=== PATIENT | female | born 1975 | race American Indian/Alaskan Native ===

== ENCOUNTER 2017-08-31 03:30 | Emergency (ER) | payer OTHER ==
[2017-08-31 03:39] VITALS: BP 116/75
[2017-08-31] MEDS ORDERED: MOTRIN PO ONE (07:57)
--- NOTE | 2017-08-31 08:01 | Emergency Department Report ---
ED ENT HPI - General Chief complaint: Earache Stated complaint: RT EARACHE Time Seen by Provider: 08/31/17 07:48 Source: patient Mode of arrival: Ambulatory Limitations: No Limitations - History of Present Illness Initial comments: 41-year-old female past medical history none presents with complaint of 2 days of right-sided earache. Patient states that she noticed some cerumen-like discharge from her right ear. Denies fevers chills nausea or vomiting. Patient is awake alert nights 3 not in acute distress. Denies any hearing loss. Onset/Timin -: days(s) Location: R ear Severity: moderate Severity scale (0 -10): 6 Quality: aching Consistency: constant Improves with: none Worsens with: none - Related Data Previous Rx's Medication Instructions Recorded Last Taken Type Amoxicillin [Trimox CAP] 500 mg PO Q8H #21 capsule 08/31/17 Unknown Rx Ibuprofen [Motrin] 800 mg PO Q8HR PRN #20 tablet 08/31/17 Unknown Rx Allergies Allergy/AdvReac Type Severity Reaction Status Date / Time No Known Allergies Allergy Unverified 08/31/17 03:35 ED Dental HPI - General Chief complaint: Earache Stated complaint: RT EARACHE Time Seen by Provider: 08/31/17 07:48 Source: patient Mode of arrival: Ambulatory Limitations: No Limitations - Related Data Previous Rx's Medication Instructions Recorded Last Taken Type Amoxicillin [Trimox CAP] 500 mg PO Q8H #21 capsule 08/31/17 Unknown Rx Ibuprofen [Motrin] 800 mg PO Q8HR PRN #20 tablet 08/31/17 Unknown Rx Allergies Allergy/AdvReac Type Severity Reaction Status Date / Time No Known Allergies Allergy Unverified 08/31/17 03:35 ED Review of Systems ROS: Stated complaint: RT EARACHE Other details as noted in HPI ENT: ear pain ED Past Medical Hx - Past Medical History Previous Medical History?: No - Surgical History Past Surgical History?: No - Social History Smoking Status: Current Every Day Smoker Substance Use Type: None - Medications Home Medications: Home Medications Medication Instructions Recorded Confirmed Last Taken Type Amoxicillin [Trimox CAP] 500 mg PO Q8H #21 capsule 08/31/17 Unknown Rx Ibuprofen [Motrin] 800 mg PO Q8HR PRN #20 tablet 08/31/17 Unknown Rx ED Physical Exam - General Limitations: No Limitations General appearance: alert, in no apparent distress - Head Head exam: Present: atraumatic, normocephalic - Eye Eye exam: Present: normal appearance, PERRL, EOMI - ENT ENT exam: Present: mucous membranes moist - Expanded ENT Exam Expanded TM/Canal exam: Erythema: Right TM, Bulging: Right TM, Cerumen Impaction: Right TM (partial cerumen impaction right ear canal. Easily removed with ear curet. The redness of tympanic membrane and injection noted. No perforation. No significant effusion. No clinical mastoiditis) - Neck Neck exam: Present: normal inspection - Respiratory Respiratory exam: Present: normal lung sounds bilaterally. Absent: respiratory distress - Cardiovascular Cardiovascular Exam: Present: regular rate, normal rhythm. Absent: systolic murmur, diastolic murmur, rubs, gallop - GI/Abdominal GI/Abdominal exam: Present: soft, normal bowel sounds - Extremities Exam Extremities exam: Present: normal inspection - Back Exam Back exam: Present: normal inspection - Neurological Exam Neurological exam: Present: alert, oriented X3 - Psychiatric Psychiatric exam: Present: normal affect, normal mood - Skin Skin exam: Present: warm, dry, intact, normal color. Absent: rash ED Course Vital Signs 08/31/17 03:35 Temperature 98.6 F Pulse Rate 79 Respiratory 16 Rate Blood Pressure 116/75 O2 Sat by Pulse 98 Oximetry ED Medical Decision Making - Medical Decision Making A/P: Right-sided otitis media 1-cerumen easily removed with ear curet, tympanic membrane visualized 2-course of amoxicillin and Motrin 800 mg 3-follow-up with primary care Critical care attestation.: If time is entered above; I have spent that time in minutes in the direct care of this critically ill patient, excluding procedure time. ED Disposition Clinical Impression: Earache on right Otitis media Qualifiers: Otitis media type: suppurative Chronicity: acute Laterality: right Recurrence: not specified as recurrent Spontaneous tympanic membrane rupture: without spontaneous rupture Qualified Code(s): H66.001 - Acute suppurative otitis media without spontaneous rupture of ear drum, right ear Disposition: DC-01 TO HOME OR SELFCARE Is pt being admited?: No Does the pt Need Aspirin: No Condition: Stable Instructions: Otitis Media (ED) Prescriptions: Amoxicillin [Trimox CAP] 500 mg PO Q8H #21 capsule Ibuprofen [Motrin] 800 mg PO Q8HR PRN #20 tablet PRN Reason: Pain , Severe (7-10) Referrals: [facility] [Provider Group] - 3-5 Days Forms: Work/School Release Form(ED) Time of Disposition: 07:56
== END 2017-08-31 08:07 | disposition home or self-care (01) ==
LOC: ED 03:30
DX: H66.001 Acute suppurative otitis media without spontaneous rupture of ear drum, right ear (principal); H61.21 Impacted cerumen, right ear; F17.200 Nicotine dependence, unspecified, uncomplicated
CPT/HCPCS: 99282

== ENCOUNTER 2019-02-24 13:05 | Inpatient (IN) | payer OTHER, BC ==
[2019-02-24 14:47] LABS: HCG Qualitative,Urine Negative (Negative)
[2019-02-24 14:54] LABS: Bilirubin,Urine NEG (Negative); Blood,Urine NEG (Negative); Color,Urine Yellow (Yellow); Urobilinogen,Urine < 2.0 mg/dL (<2.0)
[2019-02-24 15:04] LABS: Mucus,Urine 1+ /HPF
[2019-02-24] MEDS ORDERED: MORPHINE 4 MG/1 ML INJ IV ONE (16:44)
[2019-02-24] MEDS ORDERED: SODIUM CHLORIDE 0.9% 1000 ML 1,000 ML IV ONE ×2 (16:44→21:12)
[2019-02-24] MEDS ORDERED: ONDANSETRON 4 MG/2 ML INJ IV ONE ×2 (16:44→21:12)
[2019-02-24 17:29] LABS: Hematocrit 32.6 % (30.3-42.9); Hemoglobin 10.6 gm/dl (10.1-14.3); Mean Corpuscular HGB Conc 32 % (30-34); Mean Corpuscular Volume 79 fl (79-97); Platelet Count 272 K/mm3 (140-440); Red Blood Count 4.13 M/mm3 (3.65-5.03); Red Cell Distribution Width 19.4 % (13.2-15.2)
[2019-02-24 17:36] LABS: INR 1.04 (0.87-1.13)
[2019-02-24 17:38] LABS: Partial Thromboplastin Time 36.7 Sec. (24.2-36.6)
--- NOTE | 2019-02-24 17:40 | Emergency Department Report ---
<LUIGI CHEEK - Last Filed: 02/24/19 17:38> ED General Adult HPI - General Chief complaint: Abdominal Pain Stated complaint: ABD PAIN/TOOTHACE/FEVER Time Seen by Provider: 02/24/19 15:53 Source: patient Mode of arrival: Ambulatory Limitations: No Limitations - History of Present Illness Initial comments: Patient presents to the emergency department with a chief complaint of left lower quadrant abdominal pain that started on Sunday. Patient describes the pain as sharp in nature and radiates into the middle aspect of her stomach. Patient states the pain is intense and reminds her of an ectopic she had on her right side. Patient has a history of 2 sections and removal of the right fallopian tube. Patient denies any nausea or vomiting. Patient also complains of dental pain that has been present for quite some time. -: Sudden, days(s) (2) Location: abdomen Radiation: periumbillical Severity scale (0 -10): 10 Quality: sharp Consistency: constant Improves with: none Worsens with: none Associated Symptoms: denies other symptoms Treatments Prior to Arrival: none - Related Data Previous Rx's Medication Instructions Recorded Last Taken Type Amoxicillin [Trimox CAP] 500 mg PO Q8H #21 capsule 08/31/17 Unknown Rx Ibuprofen [Motrin] 800 mg PO Q8HR PRN #20 tablet 08/31/17 Unknown Rx Allergies Allergy/AdvReac Type Severity Reaction Status Date / Time No Known Allergies Allergy Verified 02/24/19 21:13 ED Review of Systems Constitutional: denies: chills, fever Eyes: denies: eye pain, eye discharge, vision change ENT: dental pain. denies: ear pain, throat pain Respiratory: denies: cough, shortness of breath, wheezing Cardiovascular: denies: chest pain, palpitations Endocrine: no symptoms reported Gastrointestinal: abdominal pain. denies: nausea, diarrhea Genitourinary: denies: urgency, dysuria, discharge Musculoskeletal: denies: back pain, joint swelling, arthralgia Skin: denies: rash, lesions Neurological: denies: headache, weakness, paresthesias Psychiatric: denies: anxiety, depression Hematological/Lymphatic: denies: easy bleeding, easy bruising ED Past Medical Hx - Past Medical History Previous Medical History?: Yes Additional medical history: Thyroid CA - Surgical History Past Surgical History?: Yes Additional Surgical History: Thyroidectomy. C section - Social History Smoking Status: Never Smoker Substance Use Type: None - Medications Home Medications: Home Medications Medication Instructions Recorded Confirmed Last Taken Type Amoxicillin [Trimox CAP] 500 mg PO Q8H #21 capsule 08/31/17 Unknown Rx Ibuprofen [Motrin] 800 mg PO Q8HR PRN #20 tablet 08/31/17 Unknown Rx ED Physical Exam - General Limitations: No Limitations General appearance: alert, in no apparent distress - Head Head exam: Present: atraumatic, normocephalic - Eye Eye exam: Present: normal appearance - ENT ENT exam: Present: mucous membranes moist - Neck Neck exam: Present: normal inspection - Respiratory Respiratory exam: Present: normal lung sounds bilaterally. Absent: respiratory distress - Cardiovascular Cardiovascular Exam: Present: regular rate, normal rhythm. Absent: systolic murmur, diastolic murmur, rubs, gallop - GI/Abdominal GI/Abdominal exam: Present: soft, tenderness (tenderness to palpation of the left lower quadrant), normal bowel sounds. Absent: distended - Extremities Exam Extremities exam: Present: normal inspection - Back Exam Back exam: Present: normal inspection - Neurological Exam Neurological exam: Present: alert, oriented X3 - Psychiatric Psychiatric exam: Present: normal affect, normal mood - Skin Skin exam: Present: warm, dry, intact, normal color. Absent: rash ED Medical Decision Making - Lab Data Result diagrams: 02/24/19 16:33 Lab Results 02/24/19 02/24/19 02/24/19 Range/Units 14:00 16:33 16:59 WBC 14.5 H (4.5-11.0) K/mm3 RBC 4.13 (3.65-5.03) M/mm3 Hgb 10.6 (10.1-14.3) gm/dl Hct 32.6 (30.3-42.9) % MCV 79 (79-97) fl MCH 26 L (28-32) pg MCHC 32 (30-34) % RDW 19.4 H (13.2-15.2) % Plt Count 272 (140-440) K/mm3 Lymph % (Auto) Nursing Student [place] % (Auto) Nursing Student Eos % (Auto) Nursing Student Baso % (Auto) Nursing Student Lymph # Nursing Student [place] # Nursing Student Eos # Nursing Student Baso # Nursing Student Seg Neutrophils % Nursing Student Seg Neutrophils # Nursing Student PT 13.7 (12.2-14.9) Sec. INR 1.04 (0.87-1.13) APTT 36.7 H (24.2-36.6) Sec. Urine Color Yellow (Yellow) Urine Turbidity Slightly-cloudy (Clear) Urine pH 6.0 (5.0-7.0) Ur Specific [place] 1.023 (1.003-1.030) Urine Protein 30 mg/dl (Negative) mg/dL Urine Glucose (UA) Neg (Negative) mg/dL Urine Ketones Neg (Negative) mg/dL Urine Blood Neg (Negative) Urine Nitrite Neg (Negative) Ur Reducing Substances Not Reportable Urine Bilirubin Neg (Negative) Urine Ictotest Not Reportable Urine Urobilinogen < 2.0 (<2.0) mg/dL Ur Leukocyte Esterase Tr (Negative) Urine WBC (Auto) 10.0 H (0.0-6.0) /HPF Urine RBC (Auto) 3.0 (0.0-6.0) /HPF U Epithel Cells (Auto) 4.0 (0-13.0) /HPF Urine Mucus 1+ /HPF Urine HCG, Qual Negative (Negative) ED Disposition Clinical Impression: Acute pelvic inflammatory disease (PID) Abdominal pain Qualifiers: Abdominal location: left lower quadrant Qualified Code(s): R10.32 - Left lower quadrant pain Disposition: -09 OP ADMIT IP TO THIS HOSP Condition: Stable Instructions: Pelvic Inflammatory Disease (ED), Abdominal Pain (ED) [facility] - 3-5 Days Print Language: SETSWANA <VINNIE BYERS - Last Filed: 02/24/19 21:25> ED Review of Systems ROS: Stated complaint: ABD PAIN/TOOTHACE/FEVER Other details as noted in HPI ED Physical Exam - External exam: Present: normal external exam Speculum exam: Present: vaginal discharge, cervical discharge (Frothy thick greenish malodorous discharge) Bi-manual exam: Present: cervical motion tendernes, adnexal tenderness (LEFT), uterine tenderness, other (female RN counseling department chair present in the pelvic exam) ED Course Vital Signs 02/24/19 13:10 Temperature 99.3 F Pulse Rate 102 H Respiratory 16 Rate Blood Pressure 115/65 O2 Sat by Pulse 97 Oximetry ED Medical Decision Making - Lab Data Result diagrams: 02/24/19 16:33 02/24/19 16:33 - Radiology Data Radiology results: report reviewed, image reviewed Findings [facility] [address] [place] [address] Cat Scan Report Signed Patient: SHARMIN SLOAN MR#: [id number] : 1975 Acct:[id number] Age/Sex: 43 / F ADM Date: 02/24/19 Loc: ED Attending Dr: Ordering Physician: LUIGI CHEEK MD Date of Service: 02/24/19 Procedure(s): CT abdomen pelvis w con Accession Number(s): [id number] cc: LUIGI CHEEK MD CT ABDOMEN AND PELVIS WITH CONTRAST INDICATION / CLINICAL INFORMATION: LLQ abdominal pain. TECHNIQUE: Axial CT images were obtained through the abdomen and pelvis after 100 cc 300 mg percent IV contrast. All CT scans at this location are performed using CT dose reduction for ALARA by means of automated exposure control. COMPARISON: None available. FINDINGS: LOWER CHEST: No significant abnormality. LIVER: No significant abnormality. GALLBLADDER: No significant abnormality. BILE DUCTS: No significant abnormality. PANCREAS: No significant abnormality. SPLEEN: No significant abnormality. ADRENALS: No significant abnormality. RIGHT KIDNEY and URETER: No significant abnormality. LEFT KIDNEY and URETER: No significant abnormality. STOMACH and SMALL BOWEL: No significant abnormality. COLON: No significant abnormality. APPENDIX: No significant abnormality. PERITONEUM: No free fluid. No free air. No fluid collection. LYMPH NODES: No significant adenopathy. AORTA and ARTERIES: No significant abnormality. IVC and VEINS: No significant abnormality. URINARY BLADDER: No significant abnormality. REPRODUCTIVE ORGANS: However, attention is directed to both adnexal region, left much more severe involvement than right where this complex fluid collections with septations measuring up to 7 cm in long axis and 4.5 cm in short axis. Reticulation of surrounding fat is noted. Adjacent to the uterus on the right there are several for a small pockets of septated fluid collections measuring up to 1.5 cm in diameter. There is a small amount of free fluid in the pelvis. ADDITIONAL FINDINGS: None. SKELETAL SYSTEM: No significant abnormality. IMPRESSION: 1. Complex fluid collections within the pelvis with findings most consistent with pelvic inflammatory disease with abscess formation on the left Signer Name: Andres Hernandez MD Signed: 02/24/2019 7:09 PM Workstation Name: [id number] Transcribed By: BEN Dictated By: Andres Hernandez MD Electronically Authenticated By: Andres Hernandez MD Signed Date/Time: 02/24/191908 DD/ 00 TD/TT: - Medical Decision Making This is a A1 43-year-old -[place] female presented to the ED with acute onset persistent severe left lower quadrant pain with subjective fever, nausea and vomiting for the last 2 days. I assumed care of this patient from Dr. Luigi Cheek at shift change at 1830 hours. Patient had been medicated for pain and is currently resting in the bed in no distress. Lab test results were reviewed and shows acute leukocytosis of 14,500, mild hyponatremia 136 mmol per liter, and hyperglycemia of 126 mg/dL.l test results are unremarkable. Abdomen pelvis CT scan showed a complex fluid collections within the pelvis with findings most consistent with pelvic inflammatory disease with abscess formation on the left. These findings were discussed with the RN MEDICAL SURGICAL physician [facility] consultant Dr. Eliana Reyes were advised of the patient be admitted to the hospital with antibiotics and pain control and that infectious disease physician [facility] consultant also be paged to be involved in the patient care. Infectious disease physician [facility] consultant Dr. Jha callback and that the patient's case was discussed with him. Dr. Jha advised that the patient be started on ceftriaxone 2 g IV every 24 hours, Flagyl 500 mg every 8 hours, and doxycycline 100 mg every 12 hours and that HIV panel, syphilis and gonorrhea/chlamydia and wet prep tests be ordered. Subsequently patient was admitted to the mother-baby unit by Dr. Reyes and the infectious disease physician [facility] consultant Dr. Jha shall consult on the patient. - Differential Diagnosis Ovarian cyst; Colitis; Tubovarian abscess; PID; UTI Critical care attestation.: If time is entered above; I have spent that time in minutes in the direct care of this critically ill patient, excluding procedure time. ED Disposition Is pt being admited?: Yes Does the pt Need Aspirin: No Time of Disposition: 20:56
[2019-02-24 17:50] LABS: Alanine Aminotransferase 11 units/L (7-56); Albumin 4.2 g/dL (3.9-5); BUN/Creatinine Ratio 9; Blood Urea Nitrogen 6 mg/dL (7-17); Calcium 9.2 mg/dL (8.4-10.2); Hemolysis Index 3
[2019-02-24 19:14] LABS: Anisocytosis 1+; Basophils % (Manual) 0 % (0.0-1.8); Eosinophils % (Manual) 0 % (0.0-4.3); Hypochromasia 1+; Ovalocytes 1+; Platelet Estimate Consistent w Auto; Tear Drop Cells 1+; Total Cells Counted 100
--- NOTE | 2019-02-24 19:14 | Cat Scan Report ---
CT ABDOMEN AND PELVIS WITH CONTRAST INDICATION / CLINICAL INFORMATION: LLQ abdominal pain. TECHNIQUE: Axial CT images were obtained through the abdomen and pelvis after 100 cc 300 mg percent IV contrast. All CT scans at this location are performed using CT dose reduction for ALARA by means of automated exposure control. COMPARISON: None available. FINDINGS: LOWER CHEST: No significant abnormality. LIVER: No significant abnormality. GALLBLADDER: No significant abnormality. BILE DUCTS: No significant abnormality. PANCREAS: No significant abnormality. SPLEEN: No significant abnormality. ADRENALS: No significant abnormality. RIGHT KIDNEY and URETER: No significant abnormality. LEFT KIDNEY and URETER: No significant abnormality. STOMACH and SMALL BOWEL: No significant abnormality. COLON: No significant abnormality. APPENDIX: No significant abnormality. PERITONEUM: No free fluid. No free air. No fluid collection. LYMPH NODES: No significant adenopathy. AORTA and ARTERIES: No significant abnormality. IVC and VEINS: No significant abnormality. URINARY BLADDER: No significant abnormality. REPRODUCTIVE ORGANS: However, attention is directed to both adnexal region, left much more severe inv olvement than right where this complex fluid collections with septations measuring up to 7 cm in long axis and 4.5 cm in short axis. Reticulation of surrounding fat is noted. Adjacent to the uterus on t he right there are several for a small pockets of septated fluid collections measuring up to 1.5 cm i n diameter. There is a small amount of free fluid in the pelvis. ADDITIONAL FINDINGS: None. SKELETAL SYSTEM: No significant abnormality. IMPRESSION: 1. Complex fluid collections within the pelvis with findings most consistent with pelvic inflammatory disease with abscess formation on the left Signer Name: Andres Hernandez MD Signed: 02/24/2019 7:09 PM Workstation Name: [id number]
[2019-02-24] MEDS ORDERED: DOXYCYCLINE 100 MG CAPSULE PO ONE (21:11)
[2019-02-24] MEDS ORDERED: cefTRIAXone/NS 2 GM/100 ML 2 GM/100 ML BAG IV ONE (21:11)
[2019-02-24] MEDS ORDERED: HYDROmorphone 1 MG/1 ML INJ IV ONE (21:12)
[2019-02-24] MEDS: metroNIDAZOLE/NS 500 MG/100 ML 500 MG/100 ML BAG IV SCH (22:10)
[2019-02-25] MEDS ORDERED: ACETAMINOPHEN 325 MG TAB PO PRN (03:05)
[2019-02-25] MEDS: oxyCODONE /ACETAMINOPHEN 5-325MG TAB PO PRN ×2 (03:22→17:08)
[2019-02-25] MEDS: LACTATED RINGERS 1,000 ML IV SCH (03:22)
[2019-02-25] MEDS: IBUPROFEN 800 MG TAB PO PRN ×2 (04:30→21:29)
[2019-02-25] MEDS: metroNIDAZOLE/NS 500 MG/100 ML 500 MG/100 ML BAG IV SCH ×3 (05:55→22:54)
--- NOTE | 2019-02-25 09:18 | History and Physical Report ---
History of Present Illness Date of examination: 02/25/19 Date of admission: 02/24/19 21:30 Chief complaint: abdominal pain and fevers History of present illness: This is a 43 yo came into ER with abdominal pain for 3 days on the left side. Denies n.v but found it difficult to walk. She reports days of low grade fever and pain at a 10 on the left side. She found it difficult to move. She denies any vaginal bleeding. LMP 02/04/19. She denies any STDs in the past but admits to two previous csec and removal of right tube from ectopic in 2009. Past History Past Medical History: thyroid disease (thyroid cancer and some lymph nodes suspicious with surgery set for this week at [facility]) Past Surgical History: section (x2), other (L/S salpingectomy) Family/Genetic History: diabetes Social history: . denies: smoking, alcohol abuse, prescription drug abuse Medications and Allergies Allergies Allergy/AdvReac Type Severity Reaction Status Date / Time No Known Allergies Allergy Verified 02/24/19 21:13 Home Medications Medication Instructions Recorded Confirmed Last Taken Type Amoxicillin [Trimox CAP] 500 mg PO Q8H #21 capsule 08/31/17 02/25/19 Unknown Rx Ibuprofen [Motrin] 800 mg PO Q8HR PRN #20 tablet 08/31/17 02/25/19 02/24/19 Rx Active Meds: Active Medications Acetaminophen (Tylenol) 650 mg PO Q6H PRN PRN Reason: Pain, Mild (1-3) Metronidazole (Flagyl 500 Mg/100 Ml) 500 mg in 100 mls @ 100 mls/hr IV Q8HR KIRILL; Protocol Last Admin: 02/25/19 05:55 Dose: 100 mls/hr Documented by: Lactated Ringer's (Lactated Ringers) 1,000 mls @ 125 mls/hr IV DIRECT KIRILL Last Admin: 02/25/19 03:22 Dose: 125 mls/hr Documented by: Ibuprofen (Ibuprofen) 800 mg PO Q8H PRN PRN Reason: Pain, Mild (1-3) Last Admin: 02/25/19 04:30 Dose: 800 mg Documented by: Oxycodone/Acetaminophen (Percocet 5/325) 2 tab PO Q6H PRN PRN Reason: Pain, Moderate (4-6) Last Admin: 02/25/19 03:22 Dose: 2 tab Documented by: Review of Systems All systems: negative Genitourinary: pelvic pain - Vital Signs Vital signs: Vital Signs Temp Pulse Resp BP Pulse Ox 99.3 F 102 H 16 115/65 97 02/24/19 13:10 02/24/19 13:10 02/24/19 13:10 02/24/19 13:10 02/24/19 13:10 Temp Pulse Resp BP Pulse Ox 99.4 F 112 H 18 102/54 96 02/25/19 05:59 02/25/19 04:50 02/25/19 04:50 02/25/19 04:50 02/25/19 04:50 - Physical Exam Breasts: Positive: deferred Cardiovascular: Regular rate, Normal S1 Lungs: Positive: Clear to auscultation, Normal air movement Abdomen: Positive: normal appearance, soft, tenderness, normal bowel sounds. Negative: distention, guarding Vagina: Positive: normal moisture Uterus: Positive: normal size, tender Extremities: Positive: normal Deep Tendon Reflex Grade: Normal +2 Results Result Diagrams: 02/24/19 16:33 02/24/19 16:33 Abnormal lab results 02/24/19 02/24/19 02/24/19 Range/Units 14:00 16:33 16:33 WBC 14.5 H (4.5-11.0) K/mm3 MCH 26 L (28-32) pg RDW 19.4 H (13.2-15.2) % Seg Neuts % (Manual) 89.0 H (40.0-70.0) % Lymphocytes % (Manual) 4.0 L (13.4-35.0) % Seg Neutrophils # Man 12.9 H (1.8-7.7) K/mm3 Lymphocytes # (Manual) 0.6 L (1.2-5.4) K/mm3 Monocytes # (Manual) 1.0 H (0.0-0.8) K/mm3 APTT (24.2-36.6) Sec. Sodium 136 L (137-145) mmol/L Carbon Dioxide 19 L (22-30) mmol/L BUN 6 L (7-17) mg/dL Glucose 126 H (65-100) mg/dL Urine WBC (Auto) 10.0 H (0.0-6.0) /HPF 02/24/19 Range/Units 16:59 WBC (4.5-11.0) K/mm3 MCH (28-32) pg RDW (13.2-15.2) % Seg Neuts % (Manual) (40.0-70.0) % Lymphocytes % (Manual) (13.4-35.0) % Seg Neutrophils # Man (1.8-7.7) K/mm3 Lymphocytes # (Manual) (1.2-5.4) K/mm3 Monocytes # (Manual) (0.0-0.8) K/mm3 APTT 36.7 H (24.2-36.6) Sec. Sodium (137-145) mmol/L Carbon Dioxide (22-30) mmol/L BUN (7-17) mg/dL Glucose (65-100) mg/dL Urine WBC (Auto) (0.0-6.0) /HPF All other labs normal. CT scan - abdomen: report reviewed Assessment and Plan A/P Abdominal pain Leukocytosis Fever Possible PID/abscess Abx initiated with appreciation of ID -following consult IR for possible drainage consider US to assess ovary Pain meds to continue
[2019-02-25 09:29] LABS: Hematocrit 29.7 % (30.3-42.9); Hemoglobin 9.7 gm/dl (10.1-14.3); Mean Corpuscular HGB Conc 33 % (30-34); Mean Corpuscular Volume 79 fl (79-97); Platelet Count 250 K/mm3 (140-440); Red Blood Count 3.75 M/mm3 (3.65-5.03); Red Cell Distribution Width 19.4 % (13.2-15.2)
[2019-02-25 10:44] LABS: Anisocytosis Few; Eosinophils % (Manual) 0 % (0.0-4.3); Hypochromasia 1+; Ovalocytes Few; Platelet Estimate Consistent w Auto; Tear Drop Cells Rare; Total Cells Counted 100
[2019-02-25] MEDS ORDERED: MIDAZOLAM 5 MG/5 ML INJ MDV IV ONE ×2 (12:58→13:16)
[2019-02-25] MEDS ORDERED: fentaNYL 100 MCG/2 ML INJ IV ONE (12:58)
[2019-02-25] MEDS ORDERED: fentaNYL 100 MCG/2 ML INJ ONE (13:16)
--- NOTE | 2019-02-25 14:35 | Post Operative Note ---
Date of procedure: 02/25/19 Pre-op diagnosis: TOA/left pyosalpinx Post-op diagnosis: other (Endiometriosis?) Findings: 5 mL of serosanginous material removed from the left ovarian cyst adjacent to the ?hydro/hemato/pyosalpinx. Procedure: CT guided drainage of the left sided ovarian cystic lesion with an 8 Fr APD drain Anesthesia: local (w/ conscious sedation) Surgeon: VINNIE MICHAELS Estimated blood loss: minimal Condition: stable Disposition: floor
--- NOTE | 2019-02-25 15:21 | Consultation ---
History of Present Illness - Reason for Consult Consult date: 02/25/19 PID/Abscess Requesting physician: VINNIE BYERS - History of Present Illness The patient is a 43-year-old female who came into the emergency room yesterday with lower abdominal pain going on for about 3 days prior to admission. She had a low grade temperature. Labs showed leucocytosis. CT abdomen showed a cystic pelvic collection concerning for PID/abscess. ID was consulted for abx recommendations, was started on Ceftriaxone, Doxycycline and Flagyl. Patient denies any h/o STDs. Was seen by IR, underwent CT guided drainage of the left sided ovarian cystic lesion with an 8 Fr APD drain, about 5 cc of serosanguinous material was removed. She reportedly underwent removal of right tube due to ect opic in 2009. Denies any high risk sexual behavior, is . Reports chronic severe pain with her menstrual cycle. Review of Systems: General: fever + HEENT: no new visual disturbance Respiratory: No cough, sputum, hemoptysis or shortness of breath Cardiovascular: No chest pain, syncope Gastrointestinal: No nausea, vomiting or diarrhea Genitourinary: No dysuria or hematuria Musculoskeletal: No new or worsening neck pain or back pain Neurologic: No headaches, seizures Hematologic: No easy bruising or bleeding Endocrine: No night sweats or acute weight loss Skin: negative for rash, jaundice Psychiatric: No suicidal or homicidal ideation Past History Social history: . denies: smoking, alcohol abuse, prescription drug abuse Medications and Allergies Allergies Allergy/AdvReac Type Severity Reaction Status Date / Time No Known Allergies Allergy Verified 02/24/19 21:13 Home Medications Medication Instructions Recorded Confirmed Last Taken Type Ibuprofen [Motrin] 800 mg PO Q8HR PRN #20 tablet 08/31/17 02/25/19 02/24/19 Rx RX: Amoxicillin [Trimox CAP] 500 mg PO Q8H #21 capsule 08/31/17 02/25/19 Unknown Rx Active Meds: Active Medications Acetaminophen (Tylenol) 650 mg PO Q6H PRN PRN Reason: Pain, Mild (1-3) Doxycycline Hyclate (Vibramycin) 100 mg PO BID KIRILL Metronidazole (Flagyl 500 Mg/100 Ml) 500 mg in 100 mls @ 100 mls/hr IV Q8HR KIRILL; Protocol Last Admin: 02/25/19 15:14 Dose: 100 mls/hr Documented by: Lactated Ringer's (Lactated Ringers) 1,000 mls @ 125 mls/hr IV DIRECT KIRILL Last Admin: 02/25/19 03:22 Dose: 125 mls/hr Documented by: Ceftriaxone Sodium (Rocephin/Ns 2 Gm/100 Ml) 2 gm in 100 mls @ 200 mls/hr IV Q24HR KIRILL; Protocol Ibuprofen (Ibuprofen) 800 mg PO Q8H PRN PRN Reason: Pain, Mild (1-3) Last Admin: 02/25/19 04:30 Dose: 800 mg Documented by: Oxycodone/Acetaminophen (Percocet 5/325) 2 tab PO Q6H PRN PRN Reason: Pain, Moderate (4-6) Last Admin: 02/25/19 03:22 Dose: 2 tab Documented by: Physical Examination - Physical Exam Narrative exam: Physical Exam: Constitutional: Alert, cooperative. No acute distress Head, Ears, Nose: Normocephalic, atraumatic. External ears, nose normal Eyes: Conjunctivae/corneas clear. No icterus. No ptosis. Neck: Supple, no meningeal signs Oral: dentition fair, no thrush Cardiovascular: S1, S2 normal. Respiratory: Good air entry, clear to auscultation bilaterally GI: Soft, non-tender; bowel sounds normal. No peritoneal signs. Drain + with slightly bloody output Musculoskeletal: No pedal edema, no cyanosis. Skin: No rash or abscess Hem/Lymphatic: No palpable cervical or supraclavicular nodes. No lymphangitis Psych: Mood ok. Affect normal Neurological: Awake, alert, oriented. No gross abnormality - Constitutional Vitals: Vital Signs Temp Pulse Resp BP Pulse Ox 97.5 F L 91 H 20 111/64 98 02/25/19 12:14 02/25/19 14:55 02/25/19 14:55 02/25/19 14:55 02/25/19 14:55 Temperature -Last 24 Hours Temperature 97.5 F Temperature 98.5 F Temperature 99.4 F Temperature 101.1 F Temperature 100.0 F Temperature 99.1 F Results - Labs CBC & Chem 7: 02/25/19 09:11 02/24/19 16:33 Labs: Abnormal lab results 02/24/19 02/24/19 02/24/19 Range/Units 16:33 16:33 16:59 WBC 14.5 H (4.5-11.0) K/mm3 Hgb (10.1-14.3) gm/dl Hct (30.3-42.9) % MCH 26 L (28-32) pg RDW 19.4 H (13.2-15.2) % Seg Neuts % (Manual) 89.0 H (40.0-70.0) % Lymphocytes % (Manual) 4.0 L (13.4-35.0) % Seg Neutrophils # Man 12.9 H (1.8-7.7) K/mm3 Lymphocytes # (Manual) 0.6 L (1.2-5.4) K/mm3 Monocytes # (Manual) 1.0 H (0.0-0.8) K/mm3 APTT 36.7 H (24.2-36.6) Sec. Sodium 136 L (137-145) mmol/L Carbon Dioxide 19 L (22-30) mmol/L BUN 6 L (7-17) mg/dL Glucose 126 H (65-100) mg/dL 02/25/19 Range/Units 09:11 WBC (4.5-11.0) K/mm3 Hgb 9.7 L (10.1-14.3) gm/dl Hct 29.7 L (30.3-42.9) % MCH 26 L (28-32) pg RDW 19.4 H (13.2-15.2) % Seg Neuts % (Manual) 88.0 H (40.0-70.0) % Lymphocytes % (Manual) 8.0 L (13.4-35.0) % Seg Neutrophils # Man 9.6 H (1.8-7.7) K/mm3 Lymphocytes # (Manual) 0.9 L (1.2-5.4) K/mm3 Monocytes # (Manual) (0.0-0.8) K/mm3 APTT (24.2-36.6) Sec. Sodium (137-145) mmol/L Carbon Dioxide (22-30) mmol/L BUN (7-17) mg/dL Glucose (65-100) mg/dL - Imaging and Cardiology CT scan - abdomen: report reviewed, image reviewed (cystic pelvic fluid collection) Assessment and Plan Cultures: 02/24/2019 and culture: In process 02/24/2019 cervical culture: Negative 02/24/2019 blood culture: In progress A/P: 43-year-old female who came into the emergency room yesterday with lower abdominal pain: #SIRS v/s sepsis secondar to pelvic fluid collection: PID associated abscess v/s endometriosis. Underwent CT guided drainage of the left sided ovarian cystic lesion with an 8 Fr APD drain, about 5 cc of serosanguinous material was removed. Reports chronic pain with menstrual cycle. Recs: continue Ceftriaxone, Doxycycline and Flagyl for now follow up GC follow up cultures, if negative, could d/c on PO Augmentin with outpatient OBGYN follow up Yadira Jha MD, FACP [facility] C: [phone] O: [phone] F: [phone]
[2019-02-25] MEDS: cefTRIAXone/NS 2 GM/100 ML 2 GM/100 ML BAG IV SCH (17:44)
[2019-02-25] MEDS: DOXYCYCLINE 100 MG CAPSULE PO SCH (17:44)
[2019-02-26] MEDS: oxyCODONE /ACETAMINOPHEN 5-325MG TAB PO PRN (00:23)
[2019-02-26] MEDS: LACTATED RINGERS 1,000 ML IV SCH (06:13)
[2019-02-26] MEDS: metroNIDAZOLE/NS 500 MG/100 ML 500 MG/100 ML BAG IV SCH ×3 (06:13→22:18)
[2019-02-26] MEDS: IBUPROFEN 800 MG TAB PO PRN ×3 (06:14→22:13)
--- NOTE | 2019-02-26 08:32 | Progress Note ---
Assessment and Plan A/P Abdominal pain Leukocytosis Fever POD1 drainage of ?abcess-serosanginous fluid continue abx ID -following appreciate IR will keep until afebrile >24-48 hrs Pain meds to continue- po abx ( augmentin on discharge home ) Subjective - Subjective Date of service: 02/26/19 Principal diagnosis: PID/abscess Interval history: This is a 43 yo came into ER with abdominal pain for 3 days on the left side. Denies n.v but found it difficult to walk. She reports days of low grade fever and pain at a 10 on the left side. She found it difficult to move. She denies any vaginal bleeding. LMP 02/04/19. She denies any STDs in the past but admits to two previous csec and removal of right tube from ectopic in 2009. Patient reports: appetite normal, voiding normally, pain well controlled, flatus, ambulating normally Objective - Vital Signs Latest vital signs: Vital Signs Temp Pulse Pulse Pulse Pulse Resp Resp 02/26/19 04:00 98.6 F 61 18 02/26/19 00:00 98.7 F 72 18 02/25/19 19:30 98.7 F 74 18 02/25/19 16:26 98.8 F 94 H 18 02/25/19 14:55 91 H 02/25/19 14:46 92 H 02/25/19 14:31 93 H 02/25/19 14:15 90 02/25/19 14:12 91 H 18 02/25/19 14:07 89 17 02/25/19 14:02 89 21 02/25/19 13:57 90 17 02/25/19 13:52 91 H 14 02/25/19 13:47 85 24 02/25/19 13:42 89 16 02/25/19 13:38 83 02/25/19 12:14 97.5 F L 87 18 Resp Resp BP BP BP BP BP 02/26/19 04:00 118/79 02/26/19 00:00 118/63 02/25/19 19:30 102/59 02/25/19 16:26 119/79 02/25/19 14:55 20 111/64 02/25/19 14:46 18 109/72 02/25/19 14:31 21 114/69 02/25/19 14:15 24 112/70 02/25/19 14:12 107/67 02/25/19 14:07 110/69 02/25/19 14:02 109/68 02/25/19 13:57 107/69 02/25/19 13:52 116/74 02/25/19 13:47 112/68 02/25/19 13:42 111/82 02/25/19 13:38 18 102/67 02/25/19 12:14 99/64 Pulse Ox Pulse Ox Pulse Ox Pulse Ox 02/26/19 04:00 02/26/19 00:00 02/25/19 19:30 02/25/19 16:26 98 02/25/19 14:55 98 02/25/19 14:46 98 02/25/19 14:31 100 02/25/19 14:15 100 02/25/19 14:12 100 02/25/19 14:07 100 02/25/19 14:02 99 02/25/19 13:57 99 02/25/19 13:52 98 02/25/19 13:47 98 02/25/19 13:42 100 02/25/19 13:38 100 02/25/19 12:14 96 Intake and Output 02/25/19 02/26/19 02/26/19 23:59 07:59 15:59 Intake Total 500 300 Balance 500 300 Intake: IV 200 FLAGYL 500 MG/100 ML 500 200 mg In 100 ml @ 100 mls/hr IV Q8HR [facility] Rx#: [id number] Intake, Free Water 300 300 Other: Voiding Method Toilet Toilet # Voids Void 1 - Exam Breasts: Present: deferred Cardiovascular: Present: Regular rate, Normal S1 Lungs: Present: Clear to auscultation, Normal air movement Abdomen: Present: normal appearance, soft, normal bowel sounds. Absent: distention, tenderness, guarding Uterus: Present: normal, firm. Absent: bogginess, tenderness Extremities: Present: normal Deep Tendon Reflex Grade: Normal +2 Incision: Present: normal - Labs Labs: Abnormal lab results 02/25/19 Range/Units 09:11 Hgb 9.7 L (10.1-14.3) gm/dl Hct 29.7 L (30.3-42.9) % MCH 26 L (28-32) pg RDW 19.4 H (13.2-15.2) % Seg Neuts % (Manual) 88.0 H (40.0-70.0) % Lymphocytes % (Manual) 8.0 L (13.4-35.0) % Seg Neutrophils # Man 9.6 H (1.8-7.7) K/mm3 Lymphocytes # (Manual) 0.9 L (1.2-5.4) K/mm3
[2019-02-26 09:10] LABS: Hematocrit 30.6 % (30.3-42.9); Hemoglobin 9.7 gm/dl (10.1-14.3); Mean Corpuscular HGB Conc 32 % (30-34); Mean Corpuscular Volume 79 fl (79-97); Platelet Count 285 K/mm3 (140-440); Red Blood Count 3.85 M/mm3 (3.65-5.03); Red Cell Distribution Width 19.4 % (13.2-15.2)
[2019-02-26] MEDS: DOXYCYCLINE 100 MG CAPSULE PO SCH ×3 (10:11→22:11)
--- NOTE | 2019-02-26 10:25 | Progress Note ---
Assessment and Plan Cultures: 02/24/2019 urine culture: skin jimenez 02/24/2019 cervical culture: Negative 02/24/2019 blood culture: no growth thus far Syphilis IgG: negative A/P: 43-year-old female who came into the emergency room yesterday with lower abdominal pain: #SIRS v/s sepsis secondar to pelvic fluid collection: PID associated abscess v/s endometriosis. Underwent CT guided drainage of the left sided ovarian cystic lesion with an 8 Fr APD drain, about 5 cc of serosanguinous material was removed on 02/25/2019. Reports chronic pain with menstrual cycle. So far, infectious work up has been negative. WBC improved. Recs: follow up GC continue Ceftriaxone, Doxycycline and Flagyl for now follow up cultures, if negative, could d/c on PO Augmentin 875 mg BID x 10 days with outpatient OBGYN follow up and management Yadira Jha MD, FACP [facility] C: [phone] O: [phone] F: [phone] Subjective Date of service: 02/26/19 Principal diagnosis: PID/abscess Interval history: No fever. Reports mild pain at the drain site. No vomiting. No diarrhea. Objective - Exam Narrative Exam: Physical Exam: Constitutional: Alert, cooperative. No acute distress Head, Ears, Nose: Normocephalic, atraumatic. External ears, nose normal Eyes: Conjunctivae/corneas clear. No icterus. No ptosis. Neck: Supple, no meningeal signs Cardiovascular: S1, S2 normal. Respiratory: Good air entry, clear to auscultation bilaterally GI: Soft, non-tender; bowel sounds normal. No peritoneal signs. Drain + with slightly bloody output Musculoskeletal: No pedal edema, no cyanosis. Skin: No rash or abscess Hem/Lymphatic: No palpable nodes. No lymphangitis Psych: Mood ok. Affect normal Neurological: Awake, alert, oriented. No gross abnormality - Constitutional Vitals: Vital Signs Temp Pulse Resp BP Pulse Ox 98.6 F 78 20 114/73 98 02/26/19 09:00 02/26/19 09:00 02/26/19 09:00 02/26/19 09:00 02/25/19 16:26 Temperature -Last 24 Hours Temperature 98.6 F Temperature 98.6 F Temperature 98.7 F Temperature 98.7 F Temperature 98.8 F Temperature 97.5 F - Labs CBC & Chem 7: 02/26/19 08:36 02/24/19 16:33 Labs: Abnormal lab results 02/25/19 02/26/19 Range/Units 09:11 08:36 Hgb 9.7 L (10.1-14.3) gm/dl MCH 25 L (28-32) pg RDW 19.4 H (13.2-15.2) % Seg Neuts % (Manual) 88.0 H (40.0-70.0) % Lymphocytes % (Manual) 8.0 L (13.4-35.0) % Seg Neutrophils # Man 9.6 H (1.8-7.7) K/mm3 Lymphocytes # (Manual) 0.9 L (1.2-5.4) K/mm3
[2019-02-26 11:15] LABS: Basophils % (Manual) 0 % (0.0-1.8); Eosinophils % (Manual) 0 % (0.0-4.3); Total Cells Counted 100
[2019-02-26 11:16] LABS: Anisocytosis Few; Giant Platelets Rare; Hypochromasia 1+; Large Platelets Rare; Ovalocytes Few; Platelet Estimate Consistent w Auto; Tear Drop Cells Rare
[2019-02-26] MEDS: ONDANSETRON 4 MG/2 ML INJ IV PRN (22:15)
[2019-02-27] MEDS: oxyCODONE /ACETAMINOPHEN 5-325MG TAB PO PRN ×2 (01:47→22:17)
[2019-02-27] MEDS: LACTATED RINGERS 1,000 ML IV SCH (04:25)
[2019-02-27] MEDS: IBUPROFEN 800 MG TAB PO PRN (06:55)
[2019-02-27] MEDS: ONDANSETRON 4 MG/2 ML INJ IV PRN ×4 (06:55→22:20)
[2019-02-27] MEDS: metroNIDAZOLE/NS 500 MG/100 ML 500 MG/100 ML BAG IV SCH ×3 (06:55→22:21)
--- NOTE | 2019-02-27 09:12 | Progress Note ---
Assessment and Plan A/P Abdominal pain Leukocytosis Fever POD2 drainage of ?abcess-serosanginous fluid cultures neg continue abx ID -following appreciate IR been 24 hrs afebrile Pain meds to continue- po abx ( augmentin on discharge home ) await ID consult for disposition Subjective - Subjective Date of service: 02/27/19 Principal diagnosis: PID/abscess Interval history: This is a 43 yo came into ER with abdominal pain for 3 days on the left side. Denies n.v but found it difficult to walk. She reports days of low grade fever and pain at a 10 on the left side. She found it difficult to move. She denies any vaginal bleeding. LMP 02/04/19. She denies any STDs in the past but admits to two previous csec and removal of right tube from ectopic in 2009. Patient reports: appetite normal, voiding normally, pain well controlled, flatus, ambulating normally Objective - Vital Signs Latest vital signs: Vital Signs Temp Pulse Resp BP 02/27/19 04:00 98.7 F 72 18 110/62 02/27/19 00:00 98.6 F 66 18 101/79 02/26/19 19:30 98.7 F 79 16 119/88 02/26/19 16:50 98.3 F 87 20 126/68 02/26/19 12:10 98.1 F 81 20 121/76 Intake and Output 02/26/19 02/27/19 02/27/19 23:59 07:59 15:59 Intake Total 720 Output Total 450 900 Balance 270 -900 Intake: IV 100 FLAGYL 500 MG/100 ML 500 100 mg In 100 ml @ 100 mls/hr IV Q8HR [facility] Rx#: [id number] Oral 320 Intake, Free Water 300 Output: Urine 450 900 Void 450 900 Other: Total, Intake Amount 320 Total, Output Amount 450 400 Voiding Method Toilet # Voids Void 1 1 - Exam Breasts: Present: deferred Cardiovascular: Present: Regular rate, Normal S1 Abdomen: Present: normal appearance, soft, normal bowel sounds. Absent: distention, tenderness, guarding Vulva: both: normal Uterus: Present: normal, firm. Absent: bogginess, tenderness Extremities: Present: normal Deep Tendon Reflex Grade: Normal +2 - Labs Labs: Abnormal lab results 02/26/19 Range/Units 08:36 Hgb 9.7 L (10.1-14.3) gm/dl MCH 25 L (28-32) pg RDW 19.4 H (13.2-15.2) % Seg Neuts % (Manual) 82.0 H (40.0-70.0) % Lymphocytes % (Manual) 13.0 L (13.4-35.0) % Lymphocytes # (Manual) 1.0 L (1.2-5.4) K/mm3
[2019-02-27] MEDS: DOXYCYCLINE 100 MG CAPSULE PO SCH ×2 (09:59→22:19)
[2019-02-27] MEDS: cefTRIAXone/NS 2 GM/100 ML 2 GM/100 ML BAG IV SCH ×2 (09:59→10:00)
--- NOTE | 2019-02-27 12:57 | Progress Note ---
Assessment and Plan Cultures: 02/24/2019 urine culture: skin jimenez 02/24/2019 cervical culture: Negative 02/24/2019 blood culture: no growth thus far Syphilis IgG: negative 02/25/2019 IR drainage culture: no growth thus far A/P: 43-year-old female who came into the emergency room yesterday with lower abdominal pain: #SIRS v/s sepsis secondar to pelvic fluid collection: PID associated abscess v/s endometriosis. Underwent CT guided drainage of the left sided ovarian cystic lesion with an 8 Fr APD drain, about 5 cc of serosanguinous material was removed on 02/25/2019. Reports chronic pain with menstrual cycle. So far, infectious work up has been negative. WBC improved. Recs: So far, infectious work up has been negative. From ID standpoint, upon discharge would do PO Augmentin 875 mg BID x 10 days (prescription left on the chart) drain management and outpatient follow up per [employer] Yadira Jha MD, FACP [facility] C: [phone] O: [phone] F: [phone] Subjective Date of service: 02/27/19 Principal diagnosis: PID/abscess Interval history: Denies fever. Feels well. Drain still present. Tolerating abx. Objective - Exam Narrative Exam: Physical Exam: Constitutional: Alert, cooperative. No acute distress Head, Ears, Nose: Normocephalic, atraumatic. External ears, nose normal Eyes: Conjunctivae/corneas clear. No icterus. No ptosis. Neck: Supple, no meningeal signs Cardiovascular: S1, S2 normal. Respiratory: Good air entry, clear to auscultation bilaterally GI: Soft, non-tender; bowel sounds normal. No peritoneal signs. Drain + Musculoskeletal: No pedal edema, no cyanosis. Skin: No rash or abscess Hem/Lymphatic: No palpable nodes. No lymphangitis Psych: Mood ok. Affect normal Neurological: Awake, alert, oriented. No gross abnormality - Constitutional Vitals: Vital Signs Temp Pulse Resp BP Pulse Ox 98.6 F 74 18 122/83 97 02/27/19 12:10 02/27/19 12:10 02/27/19 12:10 02/27/19 12:10 02/27/19 12:10 Temperature -Last 24 Hours Temperature 98.6 F Temperature 98.1 F Temperature 98.7 F Temperature 98.6 F Temperature 98.7 F Temperature 98.3 F - Labs CBC & Chem 7: 02/26/19 08:36 02/24/19 16:33
--- NOTE | 2019-02-27 15:17 | Event Note ---
Date: 02/27/19 Spoke with IR and stated to remove drain tomorrow and then discharge home
[2019-02-28] MEDS: metroNIDAZOLE/NS 500 MG/100 ML 500 MG/100 ML BAG IV SCH (06:15)
[2019-02-28] MEDS: IBUPROFEN 800 MG TAB PO PRN (06:15)
[2019-02-28] MEDS: ONDANSETRON 4 MG/2 ML INJ IV PRN (06:15)
--- NOTE | 2019-02-28 08:50 | Progress Note ---
Assessment and Plan A/P Abdominal pain Leukocytosis Fever POD3 drainage of ?abcess-serosanginous fluid cultures neg continue abx ID -following appreciate IR been 48 hrs afebrile Pain meds to continue- po abx ( augmentin on discharge home ) await removal of of drainage and d/c home Subjective - Subjective Date of service: 02/28/19 Principal diagnosis: PID/abscess Interval history: This is a 43 yo came into ER with abdominal pain for 3 days on the left side. Denies n.v but found it difficult to walk. She reports days of low grade fever and pain at a 10 on the left side. She found it difficult to move. She denies any vaginal bleeding. LMP 02/04/19. She denies any STDs in the past but admits to two previous csec and removal of right tube from ectopic in 2009. Patient reports: appetite normal, voiding normally, pain well controlled Objective - Vital Signs Latest vital signs: Vital Signs Temp Pulse Resp BP Pulse Ox 02/28/19 05:52 98.8 F 78 18 115/73 96 02/28/19 00:25 99.5 F 90 18 113/76 94 02/27/19 20:32 98.8 F 94 H 20 120/81 100 02/27/19 15:08 98.3 F 78 18 138/88 98 02/27/19 12:10 98.6 F 74 18 122/83 97 Intake and Output 02/27/19 02/28/19 02/28/19 23:59 07:59 15:59 Intake Total 1540 240 Output Total 1000 Balance 540 240 Intake: IV 100 FLAGYL 500 MG/100 ML 500 100 mg In 100 ml @ 100 mls/hr IV Q8HR [facility] Rx#: [id number] Oral 720 Intake, Free Water 720 240 Output: Drainage 50 Abdomen 50 Urine 950 Void 950 Other: Total, Intake Amount 480 Total, Output Amount 600 Voiding Method Toilet # Voids Void 1 - Exam Breasts: Present: deferred Cardiovascular: Present: Regular rate, Normal S1 Lungs: Present: Clear to auscultation, Normal air movement Abdomen: Present: normal appearance, soft, normal bowel sounds. Absent: distention, tenderness, guarding Uterus: Present: normal, firm, fundal height below umbilicus. Absent: bogginess, tenderness Extremities: Present: normal Deep Tendon Reflex Grade: Normal +2 Incision: Present: normal
[2019-02-28 09:21] VITALS: BP 101/61
[2019-02-28] MEDS ORDERED: PROMETHAZINE 25 MG TAB PO PRN (09:30)
--- NOTE | 2019-02-28 10:59 | Procedure Note ---
Date of procedure: 02/28/19 Pre-op diagnosis: hydrosalpinx, tube no longer needed Post-op diagnosis: same Procedure: Bedside removal of indwelling 8 [place] drainage catheter Anesthesia: none Surgeon: VINNIE MAYFIELD Estimated blood loss: none Pathology: none Condition: stable Disposition: floor
== END 2019-02-28 12:00 | disposition home or self-care (01) | DRG 759 ==
LOC: ED 13:05 → OB 21:30
PROVIDERS: ADMIT Obstetrics & Gynecology; ATTEND Obstetrics & Gynecology
PROC: 0U913ZZ Drainage of Left Ovary, Percutaneous Approach (ICD-10-PCS; principal; 2019-02-25)
PROC: 0TPBX0Z Removal of Drainage Device from Bladder, External Approach (ICD-10-PCS; 2019-02-28)
DX: N73.9 Female pelvic inflammatory disease, unspecified (principal); N83.202 Unspecified ovarian cyst, left side; N70.11 Chronic salpingitis
CPT/HCPCS: 10160; 36415; 74177; 77012; 80053; 81001; 81025; 83690; 84702; 85007; 85025; 85610; 85730; 86592; 87040; 87086; 87116; 87210; 87591; 88112; G0378; C1769; J0696; J1170; J2250; J2270; J2405; J3010; J7030; J7120; Q9967